=== PATIENT | male | born 1935 | race Hispanic/Latino ===

== ENCOUNTER → 2022-03-18 | Outpatient (CLI) | payer OTHER ==
[~2022-03-18] MED LIST: AMIO400T11 PO; APIX5TAB PO; ATOR40TA71 PO; CALC-866 PO; CARV6.25 PO; CLOP75TA32 PO; FLUTICASONE NASAL; FURO40TA5 PO; MELA1DRO PO; NITR0.4T SL; SACU1TAB7 PO; SPIR25TA PO; TAMS0.4C32 PO
[2022-03-18 12:04] LABS: BASOPHILS % (AUTO) 0.5 % (0.0-5.0); EOSINOPHILS % (AUTO) 1.8 % (0.0-8.0); HEMATOCRIT 43.2 % (42-54); LYMPHOCYTES % (AUTO) 22.3 % (21.0-51.0); MEAN CORPUSCULAR HEMOGLOBIN 32.9 pg (27.0-33.0); MEAN CORPUSCULAR HGB CONC 33.3 g/dL (32.0-36.0); MEAN CORPUSCULAR VOLUME 98.6 fL (79-99); NEUTROPHILS % (AUTO) 65.1 % (40.0-77.0); PLATELET COUNT (AUTO) 235 K/uL (130-400); RED BLOOD CELL COUNT(AUTO) 4.38 MIL/uL (4.50-6.20); RED CELL DISTRIBUTION WIDTH 12.5 % (11.0-15.5); WHITE BLOOD COUNT (AUTO) 6.6 K/uL (4.8-10.8)
[2022-03-18 12:17] LABS: ALBUMIN 3.8 g/dL (3.5-5.0); CREATININE 1.5 mg/dL (0.5-1.5); POTASSIUM 4.1 mmol/L (3.5-5.1); TOTAL PROTEIN, SERUM 6.8 g/dL (6.0-8.3)
== END | disposition home or self-care (01) ==
LOC: LAB 09:44
PROVIDERS: ATTEND Internal Medicine Cardiovascular Disease
DX: I50.22 Chronic systolic (congestive) heart failure (principal); I48.0 Paroxysmal atrial fibrillation; D68.59 Other primary thrombophilia
CPT/HCPCS: 36415; 80053; 80061; 83880; 85025

== ENCOUNTER 2022-11-12 10:58 | Emergency (ER) | payer OTHER ==
[~2022-11-12] VITALS: Ht 172.7 cm; Wt 85.7 kg
[~2022-11-12 10:58] MED LIST changes: +AMIO100T PO; -AMIO400T11 PO; +AMLO-257 PO; -APIX5TAB PO; -ATOR40TA71 PO; +CARV12.511 PO; -CARV6.25 PO; -CLOP75TA32 PO; +FINA5TAB41 PO; -FLUTICASONE NASAL; -FURO40TA5 PO; -MELA1DRO PO; +MULT-1258 PO; +RIVA15TA PO; +ROSU20TA73 PO; -SACU1TAB7 PO; -SPIR25TA PO; +TRAM50TA4 PO
[2022-11-12 16:50] VITALS: BP 149/76; PULSE 70; RESP 16; O2SAT 97
== END 2022-11-12 16:58 | disposition home or self-care (01) ==
LOC: EDH 10:58
DX: T82.199A Other mechanical complication of unspecified cardiac device, initial encounter (principal); I10 Essential (primary) hypertension; Z79.01 Long term (current) use of anticoagulants; Z79.02 Long term (current) use of antithrombotics/antiplatelets; Z79.899 Other long term (current) drug therapy; Z95.810 Presence of automatic (implantable) cardiac defibrillator; Y82.8 Other medical devices associated with adverse incidents; Y92.89 Other specified places as the place of occurrence of the external cause
CPT/HCPCS: 71045; 84484; 93005